=== PATIENT | male | born 1990 | race Caucasian/White ===

== ENCOUNTER 2019-03-21 13:24 | Inpatient (IN) | payer MEDICAID ==
[~2019-03-21] VITALS: Ht 175.3 cm; Wt 96.2 kg
--- NOTE | 2019-03-21 13:39 | NUR ---
EKG IN PROGRESS IN TRIAGE AFTER PTS HR 193 IN TRIAGE.
--- NOTE | 2019-03-21 13:48 | NUR ---
DR. RAJAN AT BEDSIDE, PERFORMING VAGAL MANUEVER. PT IS ON SOLARIS ADMINISTRATOR, SHOWING SVT, PT CONVERTED TO SINUS TACH, SHOWING 105 AT THIS TIME ON THE SOLARIS ADMINISTRATOR.
--- NOTE | 2019-03-21 13:50 | NUR ---
PT PRESENTED TO THE ED WITH FEVER X5 DAYS. PT REPORTS FEELING SOB WITH THE FEVER AND HAS BEEN TAKING LEFT OVER AMPICILLIN FROM A "PREVIOUS THROAT INFECTION". PT REPORTS SOB BECAUSE HIS THROAT FEELS "SWOLLEN". PT DENIES HAVING ANY CHEST PAIN. PT IS AWAKE, AAOX4, SPEAKING IN FULL CLEAR SENTENCES, RESP E/U. WILL CONTINUE TO MONITOR. GIRLFRIEND AT BEDSIDE.
--- NOTE | 2019-03-21 13:53 | NUR ---
PT DENIES FEELING CHEST PAIN, BUT REPORTS SOB WITH FEVER X5 DAYS. PT IS LAYING IN GURNEY AWAKE, AAOX4, SPEAKING IN CLEAR SENTENCES, RESP E/U, NAD NOTED. CALL LIGHT IN REACH. FRIEND AT BEDSIDE.
--- NOTE | 2019-03-21 14:00 | NUR ---
DR. RAJAN AT BEDSIDE PERFORMING VAGAL MANUEVER, X2 TIMES. PT CONTINUED TO SHOW SINUS TACHYCARDIA ON THE MONITOR AT 180'S. PER DR. RAJAN BEGIN SECOND LITER OF NS.
--- NOTE | 2019-03-21 14:07 | NUR ---
PT'S HR NOTED TO BE IN THE HIGH 170'S, MYSELF, ARNIE THOMAS, AND DR RAJAN AT BEDSIDE FOR EVALUATION.
--- NOTE | 2019-03-21 14:24 | NUR ---
DR. RAJAN AT BEDSIDE FOR ADMINISTRATION OF ADENOSINE, EMT LEEANN ON CONTINUOUS EKG MONITORING FOR THE PT, RN WILLIAM AND MYSELF AT BEDSIDE. CRASH CART AT BEDSIDE.
[2019-03-21 14:26] LABS: BASOPHIL % 0.2 % (0-2); PLATELET COUNT 183 x10^3mcL (130-400); RED CELL DISTRIBUTION WIDTH 13.6 % (11.5-14.5)
--- NOTE | 2019-03-21 14:29 | NUR ---
ADMINISTERED 6MG OF ADENOSINE WITH DR. RAJAN AT BEDSIDE, EMT STEVE ON CONTINUOUS EKG, WITH RN WILLIAM AND MYSELF. PER DR. RAJAN, PT CONVERTED INTO SINUS TACH, S/P ADENOSINE ADMINISTRATION, SHOWING HR IN THE HIGH 170'S. AWAITING NEW ORDERS. PT AWAKE, LAYING COMFORTABLY, AAOX4, DENIES ANY CHEST PAIN OR SOB, RESP E/U, NAD NOTED.
[2019-03-21 14:45] LABS: CALCIUM 7.7 mg/dL (8.5-10.1); CARBON DIOXIDE 27.4 mmol/L (21-32); CHLORIDE SERUM 102 mmol/L (98-107); CREATININE SERUM 0.9 mg/dL (0.7-1.3); GFR1 > 60 mL/min; GLUCOSE SERUM 103 mg/dL (74-106); POTASSIUM SERUM 3.5 mmol/L (3.5-5.1); SODIUM SERUM 137 mmol/L (136-145)
--- NOTE | 2019-03-21 14:47 | NUR ---
PT CONTINUES TO SHOW SINUS TACHYCARDIA ON CM. DR RAJAN IS AWARE, ORDERS TO JUST CONTINUE TO MONITOR PT AND ADMINISTER NS BOLUS.
[2019-03-21 15:19] LABS: UA SPECIFIC GRAVITY <=1.005 (1.005-1.035); microscopic required? YES; urine erythrocyte 1+ (NEGATIVE)
--- NOTE | 2019-03-21 15:21 | NUR ---
PT REPORTS FEELING LIKE HIS NOSE IS "PLUGGED" AND STATES HE FEELS A "LITTLE" ARM PAIN IN HIS LEFT ARM. PT'S HR CONTINUES TO BE HIGH 170'S. DR. RAJAN MADE AWARE.
[2019-03-21 15:30] LABS: AMPHETAMINE QUAL UR NONE DETECTED (See below)
--- NOTE | 2019-03-21 15:34 | NUR ---
PT MEDICATED PER MD ORDER. PT VERBALIZED UNDERSTANDING OF MEDICATIONS PRIOR TO ADMINISTRATION.
--- NOTE | 2019-03-21 15:57 | NUR ---
PT STATES PAIN IN ARM FEELS LIKE "PRESSURE", REPORTS ITS "NOT THAT PAINFUL, LIKE A 1".
--- NOTE | 2019-03-21 16:00 | NUR ---
THIRD BOLUS OF NS COMPLETE, PT'S HR REMAINS IN HIGH 170'S. DR. RAJAN MADE AWARE.
--- NOTE | 2019-03-21 17:13 | NUR ---
PT MEDICATED PER MD ORDER. PT VERBALIZED UNDERSTANDING OF MEDICATIONS PRIOR TO ADMINISTRATION.
--- NOTE | 2019-03-21 17:50 | NUR ---
PT REPORTS FEELING COLD, TEMP 99.6, WILL CONTINUE TO MONITOR.
--- NOTE | 2019-03-21 18:27 | NUR ---
RECEIVED NEW ORDER FOR LOPRESSOR, 5MG. PT'S HR NOTED AT 95, DR. RAJAN MADE AWARE, HOLD LOPRESSOR AT THIS TIME.
--- NOTE | 2019-03-21 18:59 | NUR ---
PT TRANSFERRED TO TELE UNIT BY RN WILLIAM AND EMT LEEANN VIA [facility]. PT IS AWAKE, AAOX4, RESP E/U, NAD NOTED, ACCOMPANIED BY GIRLFRIEND. PT VERBALIZED UNDERSTANDING OF PLAN OF CARE.
[2019-03-21 19:11] LABS: PHOSPHOROUS 2.2 mg/dL (2.5-4.9)
[2019-03-21 19:13] LABS: CHOLESTEROL/HDL RATIO 5.1
[2019-03-21 19:17] LABS: T3 TOTAL 0.53 ng/mL
[2019-03-21 19:20] LABS: FREE T4 1.05 ng/dL (0.76-1.46)
[2019-03-21 19:22] LABS: FREE THYROXINE INDEX 1.5 ug/dL (1.4-4.5); T4(THYROXINE) 4.1 ug/dL (4.7-13.3)
--- NOTE | 2019-03-21 19:24 | NUR ---
PT STATES, "IT FEELS LIKE I HAVE A FEVER AGAIN AND MY THROAT IS HURTING ME" TEMP IS 102.7, DR. RAJAN AT BEDSIDE.
--- NOTE | 2019-03-21 19:32 | NUR ---
PT MEDICATED PER MD ORDER. PT VERBALIZED UNDERSTANDING OF MEDICATION PRIOR TO ADMINISTRATION.
--- NOTE | 2019-03-21 19:46 | NUR ---
GAVE REPORT TO BOOT REPAIRER BRADY, TO ASSUME CARE FOR PT.
--- NOTE | 2019-03-21 19:50 | NUR ---
RECEIVED PT FROM ER, PT ADMIT FOR SVT, PT IS A/O X4, VERBAL RESPONSIVE, LUNG SOUND CLEAR BILATERAL, NO COUGH, NO SOB, PT IS ON TELE 1, ST, HR 141, DENY ANY CHEST PAIN OR DISCOMFORT, BOWEL SOUND PRESENT ALL 4 QUADRANTS, NO DISTENTION, NO TENDER. PEDAL PULSE PRESENT BOTH FEET, NO EDEMA, IV AT LEFT AC, NO LEAKING, NO INFILTRAITON. ALL ADLS ASSIST, ALL NEED MET, CALL LIGHT IN REACH, WILL CONTINUE TO MONITOR.
--- NOTE | 2019-03-21 19:54 | NUR ---
JUST RECEIVED CRITICAL TROP VALUE, 0.150, PRIMARY RN BRADY NOTIFIED.
--- NOTE | 2019-03-21 20:45 | NUR ---
WEB APPLICATION DEVELOPER CALLED AND INFORMED ME PT HR ELEVEATED TO 175, ASSESSED PT, PT WAS ASYMPTOMATIC, DENIES CHEST PAIN AND IN NO ACUTE DISTRESS, NOTIFIED DR RADNHAWA AND DR KOROMA, THEY SAID THEY WOULD ORDER ADENOSINE, INFORMED NAOMY CHARGE NURSE, SAID WE NO LONGER PUSH ADENOSINE ON THIS FLOOR AND PT WILL BE TRANSFERED TO ICU, NOTIFIED ALONZO RANDHAWA AND [facility], SAID THEY WOULD PUT IN ORDER FOR TRANSFER, MEANWHILE CHARGE NURSE NAOMY CALLED TO ICU TO LET THEM KNOW, CONTACTED [facility] IN ICU AND GAVE REPORT WHILE NAOMY AND RESOURCE NURSE TRANSFERED PT DOWN TO ICU
[2019-03-21 21:03] VITALS: BP 109/65
--- NOTE | 2019-03-21 21:11 | NUR ---
RECIEVED REPORT FROM ARNIE ABREU. NURSING UPDATES. POC DISCUSSED. AWAITING PT ARRIVAL.
--- NOTE | 2019-03-21 21:14 | NUR ---
PT transferred from room 237 noted with heart rate in 170's new orders Adenosine 6mg given IVP X1 given as ordered. Pt still noted with heart rate 178. Will continue to monitor awaiting pharmacy to deliver Amiodorone drip at this time.
--- NOTE | 2019-03-21 21:15 | NUR ---
PT ARRIVED FROM [facility] W/ RN CHLOE. NO S/S OF DISTRESS. PT ABLE TO TRANSFER HIMSELF TO BED. HR 151. BP 116/67 (92). O2 99%. RR 17. T 99.3. PT A&OX4. ABLE TO COMMUNICATE/FOLLOW COMMANDS. BREATHING E/U ON RA. LUNG SOUNSD CLEAR JENI. PULSES MOD BUL&BLE. NO EDEMA NOTED. CAP REFILL < 3 SEC. TACHYCARDIC HR 150-170'S. SKIN WARM/DRY/INTACT. ABD SOFT AND ROUND. BS ACTIVE X4Q. PT DENIES N/V. PT ABLE TO VOIDS FREELY TO URINAL. IV L AC C/D/I. PT DENIES PAIN. FAMILY @ BEDSIDE. REGULAR DIET.
--- NOTE | 2019-03-21 21:20 | NUR ---
PT ADM ADENOSINE 6MG ORDER OVER 2 MINS. PT HR 175. AFTER 5 MINS PT HR 182. AFTER 10 MINS HR STILL 171. NOTIFIED PHARMACY TO VERIFY AMIODARONE DRIP PER ORDERS IF HR UNAFFECTED BY ADENOSINE PUSH. PT STABLE AND NO S/S OF TACHYCARDIA. PT DENIES OVERHEATING AND SWEATS. S1S2 TO AUSC. AWAITING PHARMACY VERIFICATION.
--- NOTE | 2019-03-21 22:23 | NUR ---
PT HR DROPPED FROM 150'S-170'S TO 80-90'S. PT STATED FEELING GOOD AND THAT HE DIDN'T FEEL ANY CHANGE. PT ABLE TO STAND AND URINATE. NO S/S OF SWEATS OR FATIGUE. WILL CONT TO MONITOR.
--- NOTE | 2019-03-21 22:30 | NUR ---
PT HR 80-90'S W/ NO S/S OF SWEATY AND OR SOB. PT STATED FEELING GOOD. AMIO DRIP ON HOLD KWADWO PER RETURN TO NSR. WILL CONT TO MONITOR.
--- NOTE | 2019-03-21 22:48 | NUR ---
Pt noted with conversion , heart rate now 86 sinus rhythm. made aware and new orders to Hold Amiodorone drip at this time. New orders noted and carried out. Will continue to monitor.
[2019-03-21 23:14] VITALS: BP 122/68
--- NOTE | 2019-03-22 00:30 | NUR ---
PT HR RETURNED TO 130'S. NO S/S OF ACUTE CHANGES. PT STATED HE FELT NO CHANGES. STARTED AMIO DRIP PER PROTOCOL FOR INFUSING OF 600ML/HR PER 150MG IN 100ML BAG.
--- NOTE | 2019-03-22 02:06 | NUR ---
DR. KOROMA AT BEDSIDE FOR UPDATES. ALL QUESTIONS AND CONCERNS ANSWERED. DR. KOROMA STATED THAT IT WAS OKAY TO NOT START THE AMIODARONE IF HE IS WAS IN NORMAL SINUS RHYTHM. HR CURRENTLY 81.
[2019-03-22 03:15] VITALS: BP 107/66
[2019-03-22 03:33] LABS: BASOPHIL % 0.1 % (0-2); PLATELET COUNT 208 x10^3mcL (130-400); RED CELL DISTRIBUTION WIDTH 13.6 % (11.5-14.5)
[2019-03-22 03:44] LABS: CARBON DIOXIDE 26.3 mmol/L (21-32); CHLORIDE SERUM 104 mmol/L (98-107); CREATININE SERUM 0.8 mg/dL (0.7-1.3); GFR1 > 60 mL/min; GLUCOSE SERUM 153 mg/dL (74-106); POTASSIUM SERUM 4.3 mmol/L (3.5-5.1); SODIUM SERUM 138 mmol/L (136-145)
--- NOTE | 2019-03-22 06:07 | NUR ---
DR SAAVEDRA @ BEDSIDE. NURSING UPDATES. POC DISCUSSED. NO NEW ORDERS @ THIS TIME.
--- NOTE | 2019-03-22 06:22 | NUR ---
Relayed Troponin results to 0.388 with no new orders. Will continue to monitor.
--- NOTE | 2019-03-22 07:05 | NUR ---
RECEIVED PT FROM DEBBEI RN. PT FOUND RESTING IN BED WITH BOTH EYES CLOSED. NO S/S OF ACUTE DISTRESS. EASILY AROUSABLE TO VERBAL STIMULI, FACE SYMMETRICAL. SPEAKS BELARUSIAN. DENIES PAIN. NO CHEST PAIN. NSR ON TELE MONITOR. DENIES PALPITATION.S. CALM/COOPERTIVE. VS STABLE. IV WNL TO LAC, 20 GAUGE. PATENT AND FLUSHES WELL. SITE WNL. NO N/V. NO ZHU. NO DIZZINESS. NO CHILLS. NO FEVER. BED IN LOW POSITION. CALL LIGHT WITHIN REACH. INSTRUCTED TO USE CALL LIGHT TO CALL FOR ASSISTANCE PRN. VERBALIZED UNDERSTANDING. AT BEDSIDE. WILL CONTINUE TO MONITOR.
[2019-03-22 08:00] VITALS: BP 104/68
[2019-03-22 09:00] VITALS: Ht 175.3 cm; Wt 96.2 kg
--- NOTE | 2019-03-22 09:35 | NUR ---
DR. VACA AND RESIDENTS DISCUSSING POC WITH PATIENT. PT QUESTIONS/CONCERNS ADDRESSED BY PHYSICIAN. PT AA/OX4. NO COMPLAINT OF PAIN. NO SOB ON ROOM AIR. NO CHEST PAIN. NO PALPITATIONS. ECHOCARDIOGRAM IN PROGRESS, TECH AT BEDSIDE. CALL LIGHT WITHIN REACH. SIDE RAILS UP X2. WILL CONTINUE TO MONITOR.
--- NOTE | 2019-03-22 09:54 | NUR ---
PATIENT ROUNDS WITH DR. VACA AND RESIDENTS. CHARGE NURSE AND PRIMARY NURSE AT BEDSIDE. UPDATES PROVIDED AND POC DISCUSSED. WILL CONTINUE TO MONITOR.
--- NOTE | 2019-03-22 11:43 | NUR ---
CRITICAL LAB TROP 0.257, TRENDING DOWN. DR. SAAVEDRA AWARE. NO S/S OF ACUTE DISTRESS. NO CHEST PAIN. HR 74. WILL CONTINUE TO MONITOR.
--- NOTE | 2019-03-22 12:00 | NUR ---
PT LAYING IN BED. AA/OX4. NO COMPLAINT OF PAIN. NO SOB ON ROOM AIR. NO CHEST PAIN. NO PALPITATIONS. NO N/V. NO ZHU. NO DIZZINESS. NO FEVER. VS WNL. PT CALM/COOPERATIVE. BED IN LOW POSITION. CALL LIGHT WITHIN REACH. WILL CONTINUE TO MONITOR.
[2019-03-22 12:17] VITALS: BP 120/73
--- NOTE | 2019-03-22 13:45 | NUR ---
Discount pharmacy card and list to low cost medical clinics given to patient by Gabino.
--- NOTE | 2019-03-22 15:15 | NUR ---
PT BEING TRANSFERRED TO [facility] WITH ARNIE TIDWELL. NO S/S OF ACUTE DISTRESS. VS STABLE. NO SOB ON ROOM AIR. DENIES PALPITATIONS AT THIS TIME. NO CHEST PAIN. HR 88. CALM/COOPERATIVE. IV WNL TO LAC, NO REDNESS, NO SWELLING, NO INFILTRATION. PATENT AND FLUSHES WELL. URINE OUTPUT 750CC YELLOW/CLEAR. HAD BM X1 TODAY, BROWN/FORMED. ENDORSED TO [facility] ARNIE TIDWELL. AT BEDSIDE. WILL TAKE BY WHEELCHAIR TO ROOM 207B.
--- NOTE | 2019-03-22 15:25 | NUR ---
RECEIVED PT FROM ICU. A/OX4. TELE#5. DENIES CHEST PAIN/PRESSURE AT THIS TIME. DENIES ANY PALPATATION. PT AMBULATORY PER BRP. RESPIRATIONS EQUAL AND UNLABORED ON RA. DENIES SOB. IV TO LAC FLUSHED WELL, PATENT AND INFUSING. NO REDNESS OR SWELLING NOTED. PT DENIES ANY PAIN AT THIS TIME. WILL CONTINUE TO MONITOR. CALL LIGHT IN REACH. BED IN LOWEST POSITION.
--- NOTE | 2019-03-22 15:32 | NUR ---
PATIENT BROUGHT UP FROM ICU IN WHEELCHAIR ACCOMPANIED BY RN AND FAMILY MEMBER. PATIENT ABLE TO AMBULATE FROM WHEELCHAIR TO BED WITHOUT ASSISTANCE. ORRIENTED PATIENT TO CALL LIGHT SYSTEM AND INSTRUCTED TO USE CALL LIGHT WHEN NEEDING ASSITANCE. CALL LIGHT WITHIN REACH
--- NOTE | 2019-03-22 17:16 | NUR ---
PT ASKING TO TAKE A SHOWER. SPOKE WITH DR. SAAVEDRA WILL PUT IN ORDER.
--- NOTE | 2019-03-22 18:33 | NUR ---
PT SITTING UP IN BED. NO ACUTE RESP DISTRESS NOTED ON RA. PT DENIES ANY CHEST PAIN/PRESSURE. PT DENIES ANY PAIN AT THIS TIME. IV ANTIBIOTICS INFUSING ORDERED. NO REDNESS OR SWELLING NOTED. PT ASKING TO SHOWER. EXPLAINED TO PT WILL ALLOW HIM TO SHOWER [place]NA. PT VERBALIZED UNDERSTANDING. WILL ENDORSE TO DELICATESSEN STORE MANAGER RN. CALL LIGHT IN REACH. BED IN LOWEST POSITION.
--- NOTE | 2019-03-22 19:35 | NUR ---
RECEIVED PT FROM DAY SHIFT RN. PT AAOX4. DENIES ZHU/DIZZINESS. PT BREATHING EVEN AND UNLABORED ON RA. NO SOB NOTED. TELE # 5 SR HR 78. PT DENIES CHEST PAIN/PRESSURE. PT AMBULATORY. IV LAC PATENT, INFUSING WELL. ABD SOFT/ROUND ACTIVE BOWEL SOUNDS. DENIES ABD PAIN/N/V. CALL BUTTON WITHIN REACH. SAFETY PRECAUTIONS IN PLACE. FAMILY AT BEDSIDE. WILL CONTINUE TO MONITOR.
[2019-03-22 20:43] VITALS: BP 103/56
--- NOTE | 2019-03-23 00:34 | NUR ---
PT RESTING. AROUSABLE TO VOICE. DENIES CHEST PAIN/PRESSURE. NO SIGNS OF ACUTE DISTRESS. IV PATENT, INFUSING WELL. AT BEDSIDE. CALL BUTTON WITHIN REACH. SAFETY PRECAUTIONS IN PLACE. WILL CONTINUE TO MONITOR.
--- NOTE | 2019-03-23 03:00 | NUR ---
ROUNDS MADE. PT RESTING. NO SIGNS OF DISTRESS. CALL BUTTON WITHIN REACH. SAFETY PRECAUTIONS IN PLACE. WILL CONTINUE TO MONITOR.
--- NOTE | 2019-03-23 05:39 | NUR ---
PT SLEPT MOST OF THE NIGHT WITH NO SIGNS OF DISTRESS. BREATHING EVEN AND UNLABORED ON RA, NO SOB NOTED. PT DENIES CHEST PAIN/PRESSURE. PER HEART MONITOR PT NSR. IV PATENT, INFUSING WELL. PT AMBULATORY WITH BRP. PT DENIES ANY PAIN OR DISTRESS. MEDICATED PER EMAR. CALL BUTTON WITHIN REACH. SAFETY PRECAUTIONS IN PLACE. WILL CONTINUE TO MONITOR AND ENDORSE CARE TO DAY SHIFT RN.
[2019-03-23 05:53] VITALS: BP 109/56
[2019-03-23 06:49] LABS: BASOPHIL % 0.3 % (0-2); PLATELET COUNT 216 x10^3mcL (130-400); RED CELL DISTRIBUTION WIDTH 13.9 % (11.5-14.5)
[2019-03-23 06:51] LABS: CARBON DIOXIDE 26.3 mmol/L (21-32); CHLORIDE SERUM 107 mmol/L (98-107); CREATININE SERUM 0.8 mg/dL (0.7-1.3); GFR1 > 60 mL/min; GLUCOSE SERUM 118 mg/dL (74-106); PHOSPHOROUS 3.3 mg/dL (2.5-4.9); SODIUM SERUM 143 mmol/L (136-145)
--- NOTE | 2019-03-23 07:31 | NUR ---
PT RESTING. NO SIGNS OF DISTRESS NOTED. ENDORSED CARE TO DAY SHIFT RN, ALL QUESTIONS ADDRESSED.
--- NOTE | 2019-03-23 08:00 | NUR ---
ALERT AND ORIENTED. BREATHNG FREELY ON RA. TELE # 5 NSR. NO CHEST PAIN. INDEPENDENT W ADL'S. NS INFUSING 100 CC HOUR TO LEFT AC.VSS. BRP, CALL LIGHT WITHIN REACH.
[2019-03-23 08:17] VITALS: BP 111/63
[2019-03-23 11:40] VITALS: BP 111/63
[2019-03-23] MEDS ORDERED: AUGMENTIN 875-1 EACH PO (11:42)
[2019-03-23] MEDS ORDERED: METOPROLOL TART25 M1 PO (11:42)
[2019-03-23] MEDS ORDERED: ECO81 PO (11:43)
[2019-03-23 11:55] VITALS: BP 119/68
--- NOTE | 2019-03-23 16:46 | NUR ---
DC'D TO HOME. IV DC'D INTACT. TELE # 5 RETURNED TO TELE STATION. PRESCRIPTION GIVEN FOR AUGMENTIN. F/U ANA GIVEN FOR [facility]. PT WILL OBTAIN REFERRAL FOR CARDIAC F/U. ALL DC INSTRUCTINS REVIEWED WITHAND SIGNED BY PT.
== END 2019-03-23 15:57 | disposition home or self-care (01) | DRG 720 ==
LOC: ED 13:24 → DU 19:02 → IC 19:02 → DU 19:50 → IC 21:09 → DU 21:22 → IC 21:53 → DU 03-22 15:30
PROVIDERS: Emergency Medicine; ADMIT Internal Medicine
DX: A41.9 Sepsis, unspecified organism (principal); I21.A1 Myocardial infarction type 2; I47.1 Supraventricular tachycardia; E83.39 Other disorders of phosphorus metabolism; J03.90 Acute tonsillitis, unspecified; F12.10 Cannabis abuse, uncomplicated; F14.10 Cocaine abuse, uncomplicated; F17.210 Nicotine dependence, cigarettes, uncomplicated; Z68.33 Body mass index [BMI] 33.0-33.9, adult
CPT/HCPCS: 83880; 84439; 85378; G0378; J0153; J0282; J0696; J1100; J1885; J2543; J3490; J7030; J7060; J7512; Q0092